=== PATIENT | male | born 1960 | race Caucasian/White ===

== ENCOUNTER 2016-10-09 18:50 | Observation (INO) | payer OTHER ==
[2016-10-09] MEDS ORDERED: NS 1,000 ML IV ONE ×2 (19:15→19:41)
--- NOTE | 2016-10-09 19:18 | EDPHY ---
HPI/HX/ROS/PE/MDM Narrative: CHIEF COMPLAINT: Syncope, tarry stools HPI: The patient is a 56 y/o male arriving with his complaining of black tarry stools for the last 3 days and a syncopal episode tonight. He has noticed his "stamina has precipitously dropped over the last few days" and was planning to see his PCP tomorrow for the abnormal stools. While at dinner tonight, he had a syncopal episode. He was not confused following the syncope and believes he has a GI bleed and is anemic, which caused him to faint. He has no prior history of GI bleeds, but notes he has been using ibuprofen for knee pain recently and takes a daily aspirin. He was evaluated by EMS on scene, but refused transport after his EKG was not alarming. He vomited twice tonight after the syncope and is unsure if it was bloody. He does endorse a red bloody bowel movement since arriving in the hospital. He denies abdominal pain or pertinent medical history. His colonoscopy 2 years ago was normal. REVIEW OF SYSTEMS: Aside from elements discussed in the HPI, a comprehensive 10-point review of systems was reviewed and is negative. PMH: Kidney stones. Colonoscopy 2 years ago was normal. SOCIAL HISTORY: at bedside. 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 Prior medical records reviewed including ED visit 11/02/13 for abdominal pain and vomiting. PHYSICAL EXAM: General:Patient is alert, pale, lying flat, in no acute distress. ENT:Eyes are normal to inspection. ENT inspection normal. Neck: Normal inspection. Full range of motion. Respiratory:No respiratory distress. Breath sounds normal bilaterally. Cardiovascular: Regular rate and rhythm. Strong peripheral pulses. Normal cap refill. Abdomen:The abdomen is nontender to palpation. There are no peritoneal signs. There are normal bowel sounds. Back: Normal to inspection. No tenderness to palpation. Skin: Pale. No rash. Warm and dry. Extremities: Normal appearance. Full range of motion. Neuro: Oriented x3. Normal motor function. Normal sensory function. ED Course: IV established. Labs drawn including CBC, CHEM, PTPTT, type&screen. Patient placed on radiation monitor. 1L IV NS administered. The 12 lead EKG was interpreted by myself. Sinus rhythm rate 86. See hard copy and/or "tracemaster" electronic copy for interpretation. Hct 28, last Hct was 46 in July 2016. 1936: Consulted with Dr. Sánchez, GI. He will consult on patient during admission and recommends administering proton pump inhibitor drip. He will likely scope him tomorrow. 1940: Spoke with hospitalist service. Dr. Rosales accepts admission for anemia and GI bleed. MDM: This patient presents with signs and symptoms of GI bleed. He is pale in his hematocrit is significantly decreased. NSAIDs are the likely etiology. The patient will require urgent endoscopy and admission to the hospital for close monitoring. I see no evidence esophageal varices, hemorrhagic shock, sepsis or pneumonia. - Data Points Laboratory Results: Laboratory Results 10/09/16 19:05 10/09/16 10/09/16 10/09/16 19:18 19:05 19:05 WBC 14.38 10^3/uL H 10^3/uL (3.80-9.50) RBC 3.20 10^6/uL L 10^6/uL (4.40-6.38) Hgb 9.6 g/dL L g/dL (13.7-17.5) Hct 28.2 % L % (40.0-51.0) MCV 88.1 fL fL (81.5-99.8) MCH 30.0 pg pg (27.9-34.1) MCHC 34.0 g/dL g/dL (32.4-36.7) RDW 13.2 % % (11.5-15.2) Plt Count 322 10^3/uL 10^3/uL (150-400) MPV 10.0 fL fL (8.7-11.7) Neut % (Auto) 72.8 % % (39.3-74.2) Lymph % (Auto) 17.5 % % (15.0-45.0) [place] % (Auto) 6.7 % % (4.5-13.0) Eos % (Auto) 1.0 % % (0.6-7.6) Baso % (Auto) 0.8 % % (0.3-1.7) Nucleat RBC Rel Count 0.0 % % (0.0-0.2) Absolute Neuts (auto) 10.46 10^3/uL H 10^3/uL (1.70-6.50) Absolute Lymphs (auto) 2.52 10^3/uL 10^3/uL (1.00-3.00) Absolute Monos (auto) 0.97 10^3/uL H 10^3/uL (0.30-0.80) Absolute Eos (auto) 0.15 10^3/uL 10^3/uL (0.03-0.40) Absolute Basos (auto) 0.11 10^3/uL H 10^3/uL (0.02-0.10) Absolute Nucleated RBC 0.00 10^3/uL 10^3/uL (0-0.01) Immature Gran % 1.2 % H % (0.0-1.1) Immature Gran # 0.17 10^3/uL H 10^3/uL (0.00-0.10) PT Pending INR Pending APTT Pending Sodium Pending Potassium Pending Chloride Pending Carbon Dioxide Pending Anion Gap Pending BUN Pending Creatinine Pending Estimated GFR Pending Glucose Pending Calcium Pending Medications Given: Discontinued Medications Sodium Chloride (Ns) 1,000 mls @ 0 mls/hr IV ONCE ONE PRN Reason: Wide Open Stop: 10/09/16 19:16 Last Admin: 10/09/16 19:15 Dose: 1,000 mls General Time Seen by Provider: 10/09/16 19:15 Initial Vital Signs: Initial Vital Signs Temperature (C) 98.4 C H 10/09/16 18:57 Heart Rate 103 H 10/09/16 18:57 Respiratory Rate 15 10/09/16 18:57 Blood Pressure 121/73 H 10/09/16 18:57 O2 Sat (%) 98 10/09/16 18:57 O2 Delivery Mode Room Air Allergies/Adverse Reactions: No Known Allergies Allergy (Verified 08/01/13 22:24) Home Medications: Medication Instructions Recorded Aspirin [Aspirin 81mg (*)] 81 mg PO DAILY 10/09/16 Atorvastatin Calcium [Lipitor 20 20 mg PO DAILY@18 10/09/16 mg (*)] Cholecalciferol Vit D3 [Vitamin D3 1,000 units PO DAILY 10/09/16 (*)] Herbals/Supplements -Info Only 1 ea PO DAILY 10/09/16 Multivitamins [Multivitamin (*)] 1 each PO DAILY 10/09/16 Pantoprazole Sodium [Protonix 40mg 40 mg PO BID #60 tab 10/10/16 (*)] Departure - Departure Disposition: [facility] Inpatient Acute Clinical Impression: GI bleed Qualifiers: GI bleed type/associated pathology: unspecified gastrointestinal hemorrhage type Qualified Code(s): K92.2 - Gastrointestinal hemorrhage, unspecified Anemia Qualifiers: Anemia type: other cause Other causes of anemia: other cause, not classified Qualified Code(s): D64.89 - Other specified anemias Condition: Good Report Scribed for: Srinivasa Whitfield Report Scribed by: Shahnaz Paz Date of Report: 10/09/16 Time of Report: 19:18 Physician Review and Approval Statement: Portions of this note were transcribed by an ED scribe. I personally performed the history, physical exam, and medical decision making; and confirm the accuracy of the information in the transcribed note.
[2016-10-09 19:20] LABS: % IMMATURE GRANULYOCYTES 1.2 % (0.0-1.1); ABSOLUTE IMMATURE GRANULOCYTES 0.17 10^3/uL (0.00-0.10); ADD DIFF? NO; ADD MORPH? NO; ADD SCAN? NO; ATYPICAL LYMPHOCYTE FLAG 0 (0-99); FRAGMENT RBC FLAG 0 (0-99); HEMATOCRIT 28.2 % (40.0-51.0); HEMOGLOBIN 9.6 g/dL (13.7-17.5); LEFT SHIFT FLG 0 (0-99); LIPEMIA HEMOLYSIS FLAG 90 (0-99); MEAN CELL VOLUME 88.1 fL (81.5-99.8); PLATELET CLUMPS FLAG 0 (0-99); PLATELET COUNT 322 10^3/uL (150-400); RED CELL DISTRIBUTION WIDTH 13.2 % (11.5-15.2)
--- NOTE | 2016-10-09 19:26 | CPEKG ---
Heart Rate: 86 RR Interval: 698 P-R Interval: 188 QRSD Interval: 84 QT Interval: 380 QTC Interval: 455 P [place]: 14 QRS [place]: 69 T Wave [place]: 29 EKG Severity - NORMAL ECG - EKG Impression: SINUS RHYTHM Electronically Signed By: Giulia Yao 10-Oct-2016 10:24:28
[2016-10-09 19:35] LABS: INR 1.11 (0.83-1.16); PROTIME(PATIENT) 14.2 SEC (12.0-15.0)
[2016-10-09 19:40] LABS: ANION GAP 11 mEq/L (8-16); CALCIUM 8.8 mg/dL (8.5-10.4); CARBON DIOXIDE 22 mEq/l (22-31); CHLORIDE 105 mEq/L (97-110); CREATININE 1.1 mg/dL (0.7-1.3); GLOMERULAR FILTRATION RATE > 60; GLUCOSE 170 mg/dL (70-100); POTASSIUM 3.7 mEq/L (3.5-5.2); SODIUM 138 mEq/L (134-144)
[2016-10-09] MEDS ORDERED: PANTOPRAZOLE SODIUM 80 MG in NS 100 ML IV ONE (19:44)
[2016-10-09 19:48] LABS: APTT 20.4 SEC (23.0-38.0)
[2016-10-09] MEDS ORDERED: ONDANSETRON 4 MG/2 ML VIAL IVP ONE (20:01)
[2016-10-09] MEDS ORDERED: ONDANSETRON 4 MG/2 ML VIAL IVP PRN (21:04)
[2016-10-09] MEDS ORDERED: ACETAMINOPHEN 325 MG TAB PO PRN (21:04)
[2016-10-09] MEDS ORDERED: ONDANSETRON DISINTEGRATING 4 MG TAB PO PRN (21:04)
[2016-10-09] MEDS ORDERED: NS 1,000 ML IV SCH (21:15)
--- NOTE | 2016-10-09 21:29 | GHP ---
[f rep st] HISTORY AND PHYSICAL DATE OF ADMISSION: 10/09/2016 CHIEF COMPLAINT: Melena. HISTORY OF PRESENT ILLNESS: This is a 56-year-old male with no significant past medical history. Deloris vogt has had 3 days' of melena and today when he came to the emergency department had a little bit of b right red blood per rectum. He did have a syncopal episode today. He was given some fluids in the ER, and does not have any dizziness currently. He has been taking 4-6 Aleve plus some Excedrin for some knee pain over the last 3 weeks. He has never had any ulcers before. He denies any GERD or an y abdominal symptoms. No weight loss. REVIEW OF SYSTEMS: A 10-point Review of Systems was obtained, other than those mentioned was negati ve. PAST MEDICAL HISTORY: Hyperlipidemia. MEDICATIONS: Reviewed. SOCIAL HISTORY: No smoking. Occasional alcohol. FAMILY HISTORY: Diabetes. PHYSICAL EXAM: VITAL SIGNS: Afebrile, blood pressure 121/73, heart rate initially was 103, and now 88, oxygen saturation 96% on room air. GENERAL: The patient is well developed, no apparent distre ss. HEENT: Nonicteric sclerae. Extraocular movements intact. Moist mucous membranes. NECK: Sup ple. No thyromegaly. LUNGS: Good effort. Clear to auscultation bilaterally. CARDIOVASCULAR: Re gular rate and rhythm. No murmurs, rubs, or gallops. ABDOMEN: Positive bowel sounds. Soft, nonte nder, nondistended. No hepatosplenomegaly. EXTREMITIES: No clubbing, cyanosis, or edema. SKIN: Without rash. Warm, dry, intact. NEUROLOGIC: Alert and oriented x3. Moving all 4 extremities equ ally. PSYCH: Normal mood and affect. LABS: White count 14, hemoglobin 9. Coags are normal. Chemistry is normal other than elevated BUN at 37. ASSESSMENT: This is a 56-year-old male presenting with upper gastrointestinal bleed. PLAN: Upper bleed. Will place on clear liquids today and make n.p.o. after midnight. [facility]astro[facility] has been called and will do a scope tomorrow. We will place him on a Protonix drip. Probably most likely NSAID-related ulcer is the cause. We will check another hemoglobin in a few hours. He is hemodynamically stable. /[id number]/MODL
[2016-10-09] MEDS: PANTOPRAZOLE SODIUM 80 MG in NS 100 ML IV SCH (22:44)
[2016-10-10 00:50] LABS: HEMATOCRIT 21.3 % (40.0-51.0); HEMOGLOBIN 7.2 g/dL (13.7-17.5)
[2016-10-10 07:24] LABS: % IMMATURE GRANULYOCYTES 0.3 % (0.0-1.1); ABSOLUTE IMMATURE GRANULOCYTES 0.03 10^3/uL (0.00-0.10); ADD DIFF? NO; ADD MORPH? NO; ADD SCAN? NO; ATYPICAL LYMPHOCYTE FLAG 0 (0-99); FRAGMENT RBC FLAG 0 (0-99); HEMOGLOBIN 7.6 g/dL (13.7-17.5); LEFT SHIFT FLG 0 (0-99); LIPEMIA HEMOLYSIS FLAG 90 (0-99); MEAN CELL HEMOGLOBIN 29.9 pg (27.9-34.1); MEAN CELL HEMOGLOBIN CONCENTR. 34.5 g/dL (32.4-36.7); MEAN CELL VOLUME 86.6 fL (81.5-99.8); MEAN PLATELET VOLUME 10.4 fL (8.7-11.7); PLATELET CLUMPS FLAG 0 (0-99); PLATELET COUNT 172 10^3/uL (150-400); RED BLOOD CELL COUNT 2.54 10^6/uL (4.40-6.38); RED CELL DISTRIBUTION WIDTH 13.7 % (11.5-15.2)
[2016-10-10] MEDS: PANTOPRAZOLE SODIUM 80 MG in NS 100 ML IV SCH ×2 (07:33→11:30)
[2016-10-10 08:49] LABS: ALANINE AMINOTRANSFERASE 30 IU/L (21-72); ALBUMIN 2.6 g/dL (3.5-5.0); ALKALINE PHOSPHATASE 53 IU/L (38-126); ANION GAP 4 mEq/L (8-16); ASPARTATE AMINOTRANSFERASE 22 IU/L (17-59); BILIRUBIN,TOTAL 0.7 mg/dL (0.1-1.4); CALCIUM 8.1 mg/dL (8.5-10.4); CARBON DIOXIDE 24 mEq/l (22-31); CHLORIDE 110 mEq/L (97-110); CREATININE 0.9 mg/dL (0.7-1.3); GLOMERULAR FILTRATION RATE > 60; GLUCOSE 93 mg/dL (70-100); SODIUM 138 mEq/L (134-144); TOTAL PROTEIN 4.1 g/dL (6.3-8.2)
--- NOTE | 2016-10-10 10:55 | GCON ---
[f rep st] CONSULTATION DATE OF CONSULTATION: 10/10/2016 HISTORY OF PRESENT ILLNESS: I was kindly requested to see the patient by Dr. Srinivasa Whitfield in consultation for a chief complaint of melena. He is a 56-year -old, white male, who began to have the above 3 days ago. He developed syncope yesterday, and presented to the Emergency Department, and was admitted to the hospital. For knee pain, he has been using 4-6 Aleve, as well as Excedrin, daily for the last 3 weeks. He denies heartburn. He denies abdominal pain. He denies vomiting, rigors. PAST MEDICAL HISTORY: 1. As above. 2. Elevated lipids. 3. Otherwise, noncontributory. MEDICATIONS: Outpatient medications include the above. Inpatient medications include IV fluids and Protonix drip. SOCIAL HISTORY: He is . ALLERGIES: No known drug allergies. FAMILY HISTORY: Negative for similar bleeding. REVIEW OF SYSTEMS: Positive pertinent review of systems as per my HPI. Otherwise, a complete review of systems is negative. PHYSICAL EXAM: CONSTITUTIONAL: Nontoxic-appearing, pleasant gentleman. SKIN: Warm, dry. EYES: Pupils equal, round, react to light and accommodation. EAR , NOSE, MOUTH AND THROAT: Oropharynx without masses, moist mucosa. CARDIOVASCULAR: Normal S2. Normal PMI. RESPIRATORY: Lungs clear to auscultation and percussion anteriorly. GASTROINTESTINAL: Abdomen soft, nontender. NEUROLOGIC: Grossly nonfocal, with cranial nerves grossly intact. PSYCHIATRIC: Orientation, insight appropriate. MUSCULOSKELETAL: Strength grossly normal throughout, normal station. LABORATORIES: Hematocrit initially 28%, then 21.3%, then 22%. He has received 1 unit of blood. Normal platelet count. Normal coags. Normal electrolytes. Normal liver function tests. Of note, his baseline hematocrit is reportedly usually normal. ASSESSMENT: Melena. Almost certainly represents an upper gastrointestinal bleed. In turn, suspect an ulcer, due to nonsteroidals. PLAN: 1. Urgent upper endoscopy. 2. Serial hematocrits, transfusion of blood as needed. 3. We will decrease his IV fluids. 4. Further management pending on the above. Thank you for allowing me to help in the care of this patient. /[id number]/MODL MTDD
[2016-10-10 12:16] LABS: HEMOGLOBIN 7.6 g/dL (13.7-17.5)
[2016-10-10] MEDS ORDERED: fentaNYL 100 MCG/2 ML INJ ONE (15:19)
[2016-10-10] MEDS ORDERED: MIDAZOLAM 2 MG/2 ML VIAL ONE (15:19)
[2016-10-10] MEDS ORDERED: FLUMAZENIL 0.5 MG/5 ML MDV IVP ONE (15:20)
[2016-10-10] MEDS ORDERED: EPINEPHrine 1 MG/10 ML SYR IVP ONE (15:20)
[2016-10-10] MEDS ORDERED: NALOXONE HCL 0.4 MG/ML INJ ONE (15:20)
[2016-10-10] MEDS ORDERED: PANTOPRAZOLE SODIUM 40 MG TAB PO SCH (16:30)
--- NOTE | 2016-10-10 16:37 | GPN ---
[f rep st] PROCEDURE NOTE DATE OF PROCEDURE: 10/10/2016 PROCEDURE PERFORMED: Upper endoscopy with biopsy, BICAP therapy. PREPROCEDURE DIAGNOSIS: Melena. POSTPROCEDURE DIAGNOSIS: Ulcer, located in the duodenal bulb. Treated as below. No further active bleeding. PREMEDICATION: Fentanyl 200 mcg IV, Versed 7 mg IV. PROCEDURE TIME: Of note, the time from the beginning of IV sedation to procedure end was 19 minutes. COMPLICATIONS: None. FINDINGS: After informed consent was obtained, the patient was placed in left lateral decubitus position. Video upper endoscope was placed under direct visualization and advanced. The duodenal bulb had an ulcer present, 0.5 cm in size, with a flat red pigmented spot. This was ablated with BICAP therapy. No active bleeding was seen. The antrum of the stomach had some mild erosions. Biopsy done of the cardia and antrum for CLOtest. There was also a possible small AVM in the body of the stomach. Nonbleeding. Ablated with BICAP therapy as well. Normal esophagus. IMPRESSION: I suspect his melena, anemia is due to the above duodenal ulcer. In turn, suspect due to nonsteroidal use. Now, no further active bleeding, with very little risk of rebleeding. PLAN: 1. We will let him eat. 2. Buff cap IV. 3. We will stop his IV Protonix. Instead, use Protonix 40 mg p.o. daily. 4. We will stop his serial hematocrits. 5. Biopsies for H pylori pending. 6. From a GI standpoint, okay to discharge home. Would recommend upon discharge: 1. No further Excedrin, Aleve, nonsteroidals. Tylenol, Ultram, narcotics as needed is okay. In the future, once healed from the above, if needed, possibly Celebrex as needed with a concomitant proton pump inhibitor would be okay. 2. Recommend a generic proton pump inhibitor daily for 8 weeks. 3. Recommend iron replacement therapy for 8 weeks. 4. Follow up PCP. I will sign off. I will follow up on his biopsies for H pylori, but suspect will be negative. Otherwise, please let me know if we can be of further help in the future. Thank you for allowing us to help in the management of this patient. Copy requested to: /[id number]/MODL MTDD
--- NOTE | 2016-10-10 17:02 | GDS ---
[f rep st] DISCHARGE SUMMARY DISCHARGE DIAGNOSES: 1. Melena in the setting of upper gastrointestinal bleed from a bland duodenal ulcer. 2. Acute blood loss anemia. 3. History of hyperlipidemia. CONSULTANTS: MD CHRIS Mascorro, [facility]. HOSPITAL COURSE: 1. GI bleed with acute blood loss anemia: The patient presented with a hemoglobin of 9.6. It drop ped to 7.2. He was taken for endoscopy on 10/10/2016, where he was found have a bland duodenal ulce r that was thought to be related to NSAIDs. It was recommended that he discontinue his NSAIDs and s tart twice daily Protonix. 2. During his hospital stay, he did receive 1 unit of packed red blood cells. He does not appear t o be actively be bleeding. Prior to discharge, I discussed the case with Dr. Sánchez, who thought it w as reasonable for the patient to be discharged home. DISCHARGE MEDICATIONS: Please refer to discharge medication reconciliation in [facility] for details. PROCEDURES DONE THIS HOSPITAL STAY: Upper endoscopy done 10/10/2016, refer to report next section. DISCHARGE INSTRUCTIONS: 1. The patient will be discharged from the hospital where once again he should avoid NSAIDs. 2. He should stay on twice daily Protonix for 30 days, then daily thereafter. 3. He should follow up with [facility] as directed, and with his primary care provider f or routine hospital followup in the next 1-2 weeks. /[id number]/MODL
[2016-10-10 19:05] VITALS: BP 118/76; PULSE 57; RESP 14; TEMP 97.5; O2SAT 93
== END 2016-10-10 19:09 | disposition home or self-care (01) ==
LOC: F1N 20:09
PROVIDERS: ADMIT Internal Medicine; ATTEND Family Medicine
PROC: 0D568ZZ Destruction of Stomach, Via Natural or Artificial Opening Endoscopic (ICD-10-PCS; principal; 2016-10-09)
PROC: 0D598ZZ Destruction of Duodenum, Via Natural or Artificial Opening Endoscopic (ICD-10-PCS; principal; 2016-10-09)
PROC: 30233N1 Transfusion of Nonautologous Red Blood Cells into Peripheral Vein, Percutaneous Approach (ICD-10-PCS; principal; 2016-10-09)
PROC: 0DB68ZX Excision of Stomach, Via Natural or Artificial Opening Endoscopic, Diagnostic (ICD-10-PCS; principal; 2016-10-09)
DX: K92.2 Gastrointestinal hemorrhage, unspecified (principal); K26.9 Duodenal ulcer, unspecified as acute or chronic, without hemorrhage or perforation; D62 Acute posthemorrhagic anemia; R55 Syncope and collapse; E78.5 Hyperlipidemia, unspecified
CPT/HCPCS: 43239; 43270; 93005; G0378; P9016; 96365; J2250; J2310; J2405; J3010